=== PATIENT | male | born 1980 | race Caucasian/White ===

== ENCOUNTER 2024-03-13 12:08 | Inpatient (IN) | payer OTHER ==
[~2024-03-13] VITALS: Ht 175.3 cm; Wt 86.2 kg
[~2024-03-13 12:08] MED LIST: AMOX500 PO; CYCL10 PO; HYDACE5 PO; IBUP800 PO; NAPR500 PO; PERM5TC TOP; RXTRAM50 PO; TRAM50 PO
[2024-03-13 12:53] LABS: BASOPHILS ABSOLUTE AUTO 0.06 K/mm3 (0.00-0.23); BASOPHILS PERCENT AUTO 0 % (0-2); EOSINOPHILS PERCENT AUTO 0 % (0-6); Hematocrit 34.2 % (37.0-53.0); Hemoglobin 11.6 g/dL (13.5-17.5); IMMATURE GRAN ABSOLUTE AUTO 0.33 K/mm3 (0.00-0.10); IMMATURE GRAN PERCENT AUTO 1 % (0-1); LYMPHOCYTES ABSOLUTE AUTO 0.59 K/mm3 (0.84-5.20); LYMPHOCYTES PERCENT AUTO 2 % (21-46); MONOCYTES ABSOLUTE AUTO 2.14 K/mm3 (0.16-1.47); MONOCYTES PERCENT AUTO 8 % (4-13); Mean Corpuscular HGB 29.7 pg (26.0-34.0); Mean Corpuscular HGB Conc 33.9 g/dL (31.5-36.5); Mean Corpuscular Volume 88 fL (80-100); Mean Platelet Volume 10.2 fL (9.1-12.4); NEUTROPHILS ABSOLUTE AUTO 24.53 K/mm3 (1.96-9.15); NEUTROPHILS PERCENT AUTO 89 % (41-73); Platelet Count 212 K/mm3 (150-400); RDW Coefficient Variation 14.1 % (11.7-14.2); RDW Standard Deviation 44.9 fL (35.1-46.3); Red Blood Cell Count 3.91 M/mm3 (4.30-5.90); White Blood Cell Count 27.65 K/mm3 (4.00-11.30)
[2024-03-13 13:19] LABS: BAND PERCENT MAN 8 % (0-8); BASOPHILS PERCENT MAN 0 % (0-2); EOSINOPHILS PERCENT MAN 0 % (0-6); MONOCYTES ABSOLUTE MAN 1.38 K/mm3 (0.16-1.47); MONOCYTES PERCENT MAN 5 % (4-13); NEUTROPHILS ABSOLUTE MAN 26.26 K/mm3 (1.96-9.15); SEG NEUTROPHILS PERCENT MAN 87 % (41-73); TOTAL CELLS COUNTED 100
[2024-03-13 13:24] LABS: Albumin, Blood 3.3 g/dL (3.4-5.0); Albumin/Globulin Ratio 0.9 (0.8-1.8); Bilirubin, Total 0.9 mg/dL (0.1-1.0); Calcium, Blood 8.7 mg/dL (8.5-10.1); Globulin, Blood 3.6 g/dL (2.2-4.0); Potassium, Blood 3.8 mmol/L (3.5-5.5); Total Protein, Blood 6.9 g/dL (6.4-8.2)
[2024-03-13] MEDS ORDERED: NS 1,000 ML IV SCH ×3 (14:55→22:00)
[2024-03-13] MEDS ORDERED: Ondansetron HCl 2 MG / ML 2ML Vial IV ONE (14:55)
[2024-03-13] MEDS ORDERED: CeFAZolin Sodium 2,000 MG in NS 100 ML IV ONE (14:55)
[2024-03-13] MEDS ORDERED: Morphine Sulfate 4 MG/1 ML Injection IV ONE ×2 (14:55→19:00)
[2024-03-13 15:23] LABS: Hematocrit 30.1 % (37.0-53.0); Hemoglobin 10.4 g/dL (13.5-17.5); Mean Corpuscular HGB 29.9 pg (26.0-34.0); Mean Corpuscular HGB Conc 34.6 g/dL (31.5-36.5); Mean Corpuscular Volume 87 fL (80-100); Platelet Count 194 K/mm3 (150-400); RDW Coefficient Variation 13.8 % (11.7-14.2); RDW Standard Deviation 43.2 fL (35.1-46.3); Red Blood Cell Count 3.48 M/mm3 (4.30-5.90); White Blood Cell Count 24.87 K/mm3 (4.00-11.30)
[2024-03-13 15:45] LABS: BAND PERCENT MAN 21 % (0-8); BASOPHILS PERCENT MAN 0 % (0-2); EOSINOPHILS PERCENT MAN 0 % (0-6); LYMPHOCYTES % ATYPICAL MANUAL 1 % (0-0); LYMPHOCYTES ABSOLUTE MAN 0.99 K/mm3 (0.84-5.20); LYMPHOCYTES PERCENT MAN 3 % (21-46); METAMYELOCYTE ABSOLUTE MAN 0.49 K/mm3 (0.00-0.00); METAMYELOCYTE PERCENT MAN 2 % (0-0); MONOCYTES ABSOLUTE MAN 1.49 K/mm3 (0.16-1.47); MONOCYTES PERCENT MAN 6 % (4-13); MYELOCYTE ABSOLUTE MAN 0.24 K/mm3 (0.00-0.00); MYELOCYTE PERCENT MAN 1 % (0-0); NEUTROPHILS ABSOLUTE MAN 21.63 K/mm3 (1.96-9.15); SEG NEUTROPHILS PERCENT MAN 66 % (41-73); TOTAL CELLS COUNTED 100
[2024-03-13 15:53] LABS: International Normalized Ratio 1.13
[2024-03-13] MEDS ORDERED: OxyCODONE 5 mg/Acetamin 325 mg TABLET PO PRN (19:00)
[2024-03-13 19:08] VITALS: BP 136/123
[2024-03-13] MEDS ORDERED: Calcium Carbonate 500 MG Tab Chew PO PRN (20:50)
[2024-03-13 20:53] VITALS: BP 96/65
[2024-03-13] MEDS ORDERED: Lactobacil 2-S.Thermo-Bifido 1 1 Cap PO SCH (21:00)
[2024-03-13] MEDS ORDERED: Acetaminophen 500 MG Tab PO PRN (21:55)
[2024-03-13 22:44] VITALS: BP 93/72
[2024-03-14] MEDS ORDERED: CeFAZolin Sodium 2,000 MG in NS 100 ML IV SCH
--- NOTE | 2024-03-14 00:43 | NUR ---
2200- PT CONTINUES TO HAVE A FEVER. PROVIDER CALLED AND ORDERED TYLENOL. PROVIDER ALSO ORDERED PT TO HAVE CONTINOUS IV FLUIDS. PT PAIN IS WELL CONTROLLED. PT SOMNOLENT AND CONTINOUS SPO2 WAS ORDERED. PT REQUIRES 2 LPM NC OF O2 TO MAINTAIN SATS ABOVE 92 WHILE SLEEPING.
[2024-03-14 04:29] VITALS: BP 100/83
--- NOTE | 2024-03-14 04:59 | NUR ---
SUMMARY- PT PAIN MANAGED WELL. PT SBP HAS BEEN IN 90'S. PT MAP HAS REMAINED > 65. PT HAD NOTED FEVER AND PROVIDER CONTACTED AND TYLENOL ORDERED. PT HAS VOIDED. PT HAS SLEPT FOR ENTIRE SHIFT. PT IS EASILY AROUSED AND IS ON CONTINOUS SPO2. PT DID DESAT WHILE SLEEPING AND 1 LPM NC WAS PLACED ON PT. SPO2 HAS BEEN >92. PT RLE REMAINS VERY PAINFUL TO THE TOUCH. PHOTOS OF RLE ARE IN CHART. CALL LIGHT IN REACH.
[2024-03-14 05:35] LABS: Hematocrit 30.7 % (37.0-53.0); Hemoglobin 10.2 g/dL (13.5-17.5); Mean Corpuscular HGB 29.5 pg (26.0-34.0); Mean Corpuscular HGB Conc 33.2 g/dL (31.5-36.5); Mean Corpuscular Volume 89 fL (80-100); Mean Platelet Volume 10.3 fL (9.1-12.4); Platelet Count 178 K/mm3 (150-400); RDW Coefficient Variation 14.4 % (11.7-14.2); RDW Standard Deviation 46.6 fL (35.1-46.3); Red Blood Cell Count 3.46 M/mm3 (4.30-5.90); White Blood Cell Count 26.93 K/mm3 (4.00-11.30)
[2024-03-14 05:54] LABS: Albumin, Blood 2.5 g/dL (3.4-5.0); Albumin/Globulin Ratio 0.8 (0.8-1.8); Bilirubin, Total 0.6 mg/dL (0.1-1.0); Bun/Creatinine Ratio 10.3 (12.0-20.0); Calcium, Blood 7.5 mg/dL (8.5-10.1); Creatinine, Blood 1.16 mg/dL (0.60-1.20); Potassium, Blood 3.9 mmol/L (3.5-5.5); Total Protein, Blood 5.5 g/dL (6.4-8.2)
[2024-03-14 06:30] LABS: BAND PERCENT MAN 26 % (0-8); BASOPHILS PERCENT MAN 0 % (0-2); EOSINOPHILS PERCENT MAN 0 % (0-6); LYMPHOCYTES ABSOLUTE MAN 0.53 K/mm3 (0.84-5.20); LYMPHOCYTES PERCENT MAN 2 % (21-46); MONOCYTES ABSOLUTE MAN 1.88 K/mm3 (0.16-1.47); MONOCYTES PERCENT MAN 7 % (4-13); SEG NEUTROPHILS PERCENT MAN 65 % (41-73); TOTAL CELLS COUNTED 100
[2024-03-14 07:17] VITALS: BP 96/69
[2024-03-14] MEDS ORDERED: Enoxaparin 40 MG/0.4 ML SYR SC SCH (09:00)
[2024-03-14] MEDS ORDERED: NS 1,000 ML IV SCH (13:55)
--- NOTE | 2024-03-14 15:28 | NUR ---
SHIFT SUMMARY Patient reports adequte pain control with percocet. Vitals stable, afebrile. Continuing IV ABX for cellulitis. Awaiting blood culture results. Will continue plan of care.
[2024-03-14 15:34] VITALS: BP 107/68
[2024-03-14 19:34] VITALS: BP 110/62
[2024-03-14] MEDS ORDERED: NS 250 ML IV PRN (23:25)
--- NOTE | 2024-03-15 03:44 | NUR ---
SHIFT SUMMARY PT. IS A&O X4, ABLE TO MAKE HIS NEEDS KNOWN. PT.DENIES PAIN DURING THIS SHIFT. IV ABX INFUSED ORDERED. NO ACUTE EVENTS/DISTRESS NOTED/REPORTED DURING THIS SHIFT. BED AT THE LOWEST POSITION, CALL LIGHT IN REACH.WILL HANDOFF TO THE INCOMING SHIFT NURSE.
[2024-03-15 04:36] VITALS: BP 109/69
[2024-03-15 05:45] LABS: Hematocrit 29.7 % (37.0-53.0); Hemoglobin 10.1 g/dL (13.5-17.5); Mean Corpuscular HGB 29.7 pg (26.0-34.0); Mean Corpuscular Volume 87 fL (80-100); Mean Platelet Volume 10.4 fL (9.1-12.4); Platelet Count 190 K/mm3 (150-400); RDW Coefficient Variation 14.6 % (11.7-14.2); RDW Standard Deviation 46.8 fL (35.1-46.3); White Blood Cell Count 22.99 K/mm3 (4.00-11.30)
[2024-03-15 06:15] LABS: Bun/Creatinine Ratio 9.1 (12.0-20.0); Calcium, Blood 8.1 mg/dL (8.5-10.1); Creatinine, Blood 0.77 mg/dL (0.60-1.20); Potassium, Blood 3.9 mmol/L (3.5-5.5)
[2024-03-15 06:18] LABS: BAND PERCENT MAN 20 % (0-8); BASOPHILS PERCENT MAN 0 % (0-2); EOSINOPHILS PERCENT MAN 0 % (0-6); LYMPHOCYTES ABSOLUTE MAN 0.68 K/mm3 (0.84-5.20); LYMPHOCYTES PERCENT MAN 3 % (21-46); METAMYELOCYTE ABSOLUTE MAN 0.45 K/mm3 (0.00-0.00); METAMYELOCYTE PERCENT MAN 2 % (0-0); MONOCYTES ABSOLUTE MAN 1.14 K/mm3 (0.16-1.47); MONOCYTES PERCENT MAN 5 % (4-13); NEUTROPHILS ABSOLUTE MAN 20.69 K/mm3 (1.96-9.15); SEG NEUTROPHILS PERCENT MAN 70 % (41-73); TOTAL CELLS COUNTED 100
[2024-03-15 08:06] VITALS: BP 112/79
[2024-03-15] MEDS ORDERED: Lactated Ringer's 1,000 ML IV SCH (10:20)
[2024-03-15] MEDS ORDERED: HyDROXyzine HCl 25 MG Tab PO PRN (12:05)
[2024-03-15 15:13] VITALS: BP 116/83
--- NOTE | 2024-03-15 18:29 | NUR ---
SHIFT SUMMARY PT A&OX4, VSS, REMAINED IN BED T/O SHIFT, TOLERATING PO, VOIDING, AND PAIN MANAGED PER EMAR. LR INFUSING PER EMAR ORDER. NO ACUTE CHANGES. CALL LIGHT WITHIN REACH AND PT ABLE TO MAKE NEEDS KNOWN.
[2024-03-15 19:05] VITALS: BP 127/80
--- NOTE | 2024-03-16 04:31 | NUR ---
SHIFT SUMMARY HAP* WAS ALERT AND FULLY ORIENTED ON ASSESSMENT. PT STATES THAT THERE IS NO PAIN WHILE AT REST. PT MOSTLY INDEPENDENT NO CHANGES TO CONDITION. PT RESTING IN BED AT LOW POSITION
[2024-03-16 04:33] VITALS: BP 120/82
[2024-03-16 06:14] LABS: BASOPHILS ABSOLUTE AUTO 0.06 K/mm3 (0.00-0.23); BASOPHILS PERCENT AUTO 0 % (0-2); EOSINOPHILS ABSOLUTE AUTO 0.34 K/mm3 (0.00-0.68); EOSINOPHILS PERCENT AUTO 2 % (0-6); Hematocrit 28.2 % (37.0-53.0); Hemoglobin 9.5 g/dL (13.5-17.5); IMMATURE GRAN ABSOLUTE AUTO 0.11 K/mm3 (0.00-0.10); IMMATURE GRAN PERCENT AUTO 1 % (0-1); LYMPHOCYTES ABSOLUTE AUTO 0.81 K/mm3 (0.84-5.20); LYMPHOCYTES PERCENT AUTO 4 % (21-46); MONOCYTES ABSOLUTE AUTO 2.02 K/mm3 (0.16-1.47); MONOCYTES PERCENT AUTO 11 % (4-13); Mean Corpuscular HGB 29.2 pg (26.0-34.0); Mean Corpuscular HGB Conc 33.7 g/dL (31.5-36.5); Mean Corpuscular Volume 87 fL (80-100); Mean Platelet Volume 9.9 fL (9.1-12.4); NEUTROPHILS ABSOLUTE AUTO 15.51 K/mm3 (1.96-9.15); NEUTROPHILS PERCENT AUTO 82 % (41-73); Platelet Count 233 K/mm3 (150-400); RDW Coefficient Variation 14.5 % (11.7-14.2); RDW Standard Deviation 46.4 fL (35.1-46.3); Red Blood Cell Count 3.25 M/mm3 (4.30-5.90); White Blood Cell Count 18.85 K/mm3 (4.00-11.30)
[2024-03-16 06:36] LABS: Bun/Creatinine Ratio 9.1 (12.0-20.0); Calcium, Blood 7.6 mg/dL (8.5-10.1); Creatinine, Blood 0.77 mg/dL (0.60-1.20); Potassium, Blood 3.6 mmol/L (3.5-5.5)
[2024-03-16 07:44] VITALS: BP 145/88
[2024-03-16] MEDS ORDERED: CeFAZolin Sodium 2,000 MG VIAL ONE (09:50)
[2024-03-16] MEDS ORDERED: Lactated Ringer's 1,000 ML IV SCH (16:00)
[2024-03-16 16:30] VITALS: BP 177/108
[2024-03-16 19:19] VITALS: BP 134/101
[2024-03-16] MEDS ORDERED: Nicotine 21 MG PATCH TOP SCH (20:25)
--- NOTE | 2024-03-17 04:06 | NUR ---
SHIFT SUMMARY GINNY WAS ALERT AND FULLY ORIENTED ON ASSESSMENT. BLISTER ON PT AFFECTED R LEG NOTED TO BE GROWING IN SIZE. MEDICATED PRN FOR PAIN. NO CHANGES TO PT CONDITION. NICOTINE PATCH ADDED TO PT EMAR. PT RESTING.
[2024-03-17 04:20] VITALS: BP 127/79
[2024-03-17 06:08] LABS: BASOPHILS ABSOLUTE AUTO 0.05 K/mm3 (0.00-0.23); BASOPHILS PERCENT AUTO 0 % (0-2); EOSINOPHILS ABSOLUTE AUTO 0.37 K/mm3 (0.00-0.68); EOSINOPHILS PERCENT AUTO 3 % (0-6); Hematocrit 29.5 % (37.0-53.0); IMMATURE GRAN ABSOLUTE AUTO 0.27 K/mm3 (0.00-0.10); IMMATURE GRAN PERCENT AUTO 2 % (0-1); LYMPHOCYTES ABSOLUTE AUTO 1.01 K/mm3 (0.84-5.20); LYMPHOCYTES PERCENT AUTO 8 % (21-46); MONOCYTES ABSOLUTE AUTO 1.98 K/mm3 (0.16-1.47); MONOCYTES PERCENT AUTO 16 % (4-13); Mean Corpuscular HGB 29.1 pg (26.0-34.0); Mean Corpuscular HGB Conc 33.9 g/dL (31.5-36.5); Mean Corpuscular Volume 86 fL (80-100); Mean Platelet Volume 9.3 fL (9.1-12.4); NEUTROPHILS ABSOLUTE AUTO 8.51 K/mm3 (1.96-9.15); NEUTROPHILS PERCENT AUTO 70 % (41-73); Platelet Count 298 K/mm3 (150-400); RDW Coefficient Variation 14.6 % (11.7-14.2); RDW Standard Deviation 46.4 fL (35.1-46.3); Red Blood Cell Count 3.44 M/mm3 (4.30-5.90); White Blood Cell Count 12.19 K/mm3 (4.00-11.30)
[2024-03-17 06:38] LABS: Bun/Creatinine Ratio 6.6 (12.0-20.0); Calcium, Blood 8.1 mg/dL (8.5-10.1); Creatinine, Blood 0.76 mg/dL (0.60-1.20); Potassium, Blood 3.4 mmol/L (3.5-5.5)
[2024-03-17 07:54] VITALS: BP 124/75
[2024-03-17] MEDS ORDERED: Docusate Sodium/Senna 1 Tab PO PRN (12:05)
[2024-03-17] MEDS ORDERED: Vancomycin HCL 2,000 MG in NS 500 ML IV ONE (12:35)
[2024-03-17 15:14] VITALS: BP 135/95
--- NOTE | 2024-03-17 17:39 | NUR ---
SHIFT SUMMARY PT C/O MORE REDNESS TO R LEG THIS AM. AREA MARKED FOR MONITORING. DR. RICHARDSON SHOWN AND NIHARIKA ADDED TO EMAR. LR STARTED TODAY AT 200 ML/HR. NS STOPPED. NEW PHOTO TAKEN OF BLISTERS TO R ANKLE. AREA INTACT CURRENLTY. POOR APPETITE OVERALL. MEDICATED FOR PAIN TWICE THIS SHIFT. SLEEPING OFTEN. CONT PULSE OX IN PLACE. PT DENIES OTHER NEEDS AT THIS TIME. VS REVIEWED. CALL LIGHT IN REACH.
[2024-03-17 20:09] VITALS: BP 141/84
[2024-03-17] MEDS ORDERED: Vancomycin HCL 1,000 MG in NS 250 ML IV SCH (21:00)
[2024-03-18 04:52] VITALS: BP 128/84
--- NOTE | 2024-03-18 06:02 | NUR ---
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 PATIENT COMPLAINED OF PAIN AND PRN OXY WAS GIVEN TWICE DURING THE SHIFT. HERE FOR CELLULITIS TO THE RIGHT FOOT. REDNESS HAS EXTENDED BEYOND THE MARKED AREA FROM THE DAY SHIFT. BLISTER TO RIGHT ANKLE. RIGHT FOOT IS ELEVATED.
[2024-03-18 06:04] LABS: BASOPHILS ABSOLUTE AUTO 0.06 K/mm3 (0.00-0.23); BASOPHILS PERCENT AUTO 1 % (0-2); EOSINOPHILS ABSOLUTE AUTO 0.39 K/mm3 (0.00-0.68); EOSINOPHILS PERCENT AUTO 3 % (0-6); Hematocrit 30.1 % (37.0-53.0); Hemoglobin 10.1 g/dL (13.5-17.5); IMMATURE GRAN ABSOLUTE AUTO 0.57 K/mm3 (0.00-0.10); IMMATURE GRAN PERCENT AUTO 5 % (0-1); LYMPHOCYTES ABSOLUTE AUTO 1.04 K/mm3 (0.84-5.20); LYMPHOCYTES PERCENT AUTO 9 % (21-46); MONOCYTES ABSOLUTE AUTO 1.66 K/mm3 (0.16-1.47); MONOCYTES PERCENT AUTO 15 % (4-13); Mean Corpuscular HGB 28.7 pg (26.0-34.0); Mean Corpuscular HGB Conc 33.6 g/dL (31.5-36.5); Mean Corpuscular Volume 86 fL (80-100); Mean Platelet Volume 9.1 fL (9.1-12.4); NEUTROPHILS PERCENT AUTO 68 % (41-73); Platelet Count 360 K/mm3 (150-400); RDW Coefficient Variation 14.7 % (11.7-14.2); RDW Standard Deviation 46.3 fL (35.1-46.3); Red Blood Cell Count 3.52 M/mm3 (4.30-5.90); White Blood Cell Count 11.42 K/mm3 (4.00-11.30)
[2024-03-18 06:21] LABS: Bun/Creatinine Ratio 8.1 (12.0-20.0); Calcium, Blood 7.9 mg/dL (8.5-10.1); Creatinine, Blood 0.74 mg/dL (0.60-1.20); Potassium, Blood 3.8 mmol/L (3.5-5.5)
[2024-03-18 07:34] VITALS: BP 141/94
[2024-03-18 12:29] LABS: Vancomycin, Trough 10.5 ug/mL (5.0-10.0)
[2024-03-18] MEDS ORDERED: Vancomycin HCL 1,250 MG in NS 250 ML IV SCH (13:00)
[2024-03-18] MEDS ORDERED: Lactated Ringer's 1,000 ML IV SCH (13:50)
[2024-03-18 14:40] LABS: Percent Saturation 12.3 % (20.0-50.0)
[2024-03-18 14:45] LABS: IMMATURE RETIC FRACTION 11.4 % (2.3-16.0); RETIC HGB EQUIVALENT 27.3 pg (28.20-36.60); RETICULOCYTE ABSOLUTE 0.019 M/mm3 (0.0200-0.1100); RETICULOCYTE COUNT PERCENT 0.52 % (0.50-2.50)
[2024-03-18 15:54] VITALS: BP 125/80
--- NOTE | 2024-03-18 18:29 | NUR ---
SHIFT SUMMARY PT AOX4, BR AT THIS TIME DUE TO R LEG PAIN. USES THE URINAL INDEPENDENTLY. CALLS AND MAKES HIS NEEDS KNOWN. MEDICATED FOR PAIN PER THE EMAR. PT HAS SLEPT MOST OF THE SHIFT. EATING FOOD FROM HIS FAMILY, NOT EATING HOSPITAL FOOD. FAMILY AT THE BS TODAY AND UPDATED. CALL LIGHT WITHIN REACH, BED LOCKED AND IN THE LOWEST POSITION. WILL REPORT TO ONCOMING NURSE. REPOSTIIONED THROUGHOUT THE SHIFT.
[2024-03-18 19:37] VITALS: BP 132/71
--- NOTE | 2024-03-19 04:14 | NUR ---
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 USES THE URINAL AND BEDSIDE AND CALLS APPROPRIATELY. MARKED CELLULITIS TO R LEG IS DECREASING, BLISTER TO RIGHT ANKLE IS INCREASING IN SIDE. PATIENT COMPLAINED OF PAIN TO RIGHT LEG, PRN PAIN MEDS GIVEN DURING SHIFT.
[2024-03-19 04:58] VITALS: BP 124/74
[2024-03-19 06:08] LABS: Hematocrit 31.8 % (37.0-53.0); Hemoglobin 10.7 g/dL (13.5-17.5); Mean Corpuscular HGB 28.8 pg (26.0-34.0); Mean Corpuscular HGB Conc 33.6 g/dL (31.5-36.5); Mean Corpuscular Volume 86 fL (80-100); Mean Platelet Volume 8.9 fL (9.1-12.4); Platelet Count 442 K/mm3 (150-400); RDW Coefficient Variation 14.8 % (11.7-14.2); RDW Standard Deviation 46.3 fL (35.1-46.3); Red Blood Cell Count 3.72 M/mm3 (4.30-5.90); White Blood Cell Count 10.74 K/mm3 (4.00-11.30)
[2024-03-19 06:37] LABS: Bun/Creatinine Ratio 11.2 (12.0-20.0); Calcium, Blood 8.8 mg/dL (8.5-10.1); Creatinine, Blood 0.72 mg/dL (0.60-1.20)
[2024-03-19 06:42] LABS: BAND PERCENT MAN 6 % (0-8); BASOPHILS PERCENT MAN 0 % (0-2); EOSINOPHILS ABSOLUTE MAN 0.53 K/mm3 (0.00-0.68); EOSINOPHILS PERCENT MAN 5 % (0-6); LYMPHOCYTES ABSOLUTE MAN 0.96 K/mm3 (0.84-5.20); LYMPHOCYTES PERCENT MAN 9 % (21-46); MONOCYTES ABSOLUTE MAN 1.28 K/mm3 (0.16-1.47); MONOCYTES PERCENT MAN 12 % (4-13); NEUTROPHILS ABSOLUTE MAN 7.94 K/mm3 (1.96-9.15); SEG NEUTROPHILS PERCENT MAN 68 % (41-73); TOTAL CELLS COUNTED 100
[2024-03-19 07:27] VITALS: BP 130/81
[2024-03-19] MEDS ORDERED: Lactated Ringer's 1,000 ML IV SCH (09:00)
[2024-03-19] MEDS ORDERED: Arginine/Glutamine/Calcium Hmb 1 Packet PO SCH (09:00)
[2024-03-19 12:41] LABS: Vancomycin, Trough 15.7 ug/mL (5.0-10.0)
--- NOTE | 2024-03-19 15:02 | NUR ---
NOTE: PER PHARMACY, OKAY TO PIGGY BACK ANCEF AND VANCO OFF OF LACTATED RINGERS.
--- NOTE | 2024-03-19 18:01 | NUR ---
SHIFT SUMMARY PT AOX4, SBA FWW TO THE BR. HE CALLS AND MAKES HIS NEEDS KNOWN. MEDICATED FOR PAIN PER THE EMAR. SHOWER DONE THIS SHIFT AND BEDDING CHANGED. PT STATES SOME RELIEF TODAY BUT STILL IN A LOT OF PAIN. FAMILY UPDATED. CALL LIGHT WITHIN REACH, BED LOCKED AND IN THE LOWEST POSITION. REPOSITIONED THROUGHOUT THE SHIFT. WILL REPORT TO ONCOMING NURSE.
[2024-03-20 03:14] VITALS: BP 124/86
[2024-03-20 06:02] LABS: Hematocrit 31.4 % (37.0-53.0); Hemoglobin 10.6 g/dL (13.5-17.5); Mean Corpuscular HGB Conc 33.8 g/dL (31.5-36.5); Mean Corpuscular Volume 86 fL (80-100); Mean Platelet Volume 8.5 fL (9.1-12.4); Platelet Count 492 K/mm3 (150-400); RDW Coefficient Variation 14.6 % (11.7-14.2); Red Blood Cell Count 3.66 M/mm3 (4.30-5.90); White Blood Cell Count 10.17 K/mm3 (4.00-11.30)
[2024-03-20 06:30] LABS: BAND PERCENT MAN 4 % (0-8); BASOPHILS PERCENT MAN 1 % (0-2); EOSINOPHILS ABSOLUTE MAN 0.81 K/mm3 (0.00-0.68); EOSINOPHILS PERCENT MAN 8 % (0-6); LYMPHOCYTES ABSOLUTE MAN 0.81 K/mm3 (0.84-5.20); LYMPHOCYTES PERCENT MAN 8 % (21-46); MONOCYTES ABSOLUTE MAN 0.71 K/mm3 (0.16-1.47); MONOCYTES PERCENT MAN 7 % (4-13); MYELOCYTE PERCENT MAN 2 % (0-0); NEUTROPHILS ABSOLUTE MAN 7.52 K/mm3 (1.96-9.15); SEG NEUTROPHILS PERCENT MAN 70 % (41-73); TOTAL CELLS COUNTED 100
--- NOTE | 2024-03-20 06:34 | NUR ---
SHIFT SUMMARY NOC PT A/O X 4. PLEASANT AND COOPERATIVE WITH CARE. VSS. NO ACUTE CHANGES TO REPORT. RLE CELLULITIS RED AND WARM TO TOUCH AND THEY ARE RECEIVING IV ABX FOR TX AND PAIN BEING MANAGED PER EMAR. RLE HAS CLEAR DRAINAGE COMING FROM BLISTER ON R FOOT THAT POPPED THE PREVIOUS DAY. INFUSION OF LR @ 200 ML/HR STILL RUNNING. PT IS CURRENTLY RESTING WITH BED IN LOWEST POSITION, AND CALL LIGHT WITHIN REACH.
[2024-03-20 06:36] LABS: Bun/Creatinine Ratio 19.7 (12.0-20.0); Calcium, Blood 8.6 mg/dL (8.5-10.1); Creatinine, Blood 0.66 mg/dL (0.60-1.20); Potassium, Blood 3.9 mmol/L (3.5-5.5)
[2024-03-20 08:20] VITALS: BP 138/91
[2024-03-20 12:33] LABS: Vancomycin, Trough 14.9 ug/mL (5.0-10.0)
[2024-03-20 15:38] VITALS: BP 147/111
[2024-03-20 16:15] VITALS: BP 150/91
--- NOTE | 2024-03-20 19:18 | NUR ---
VSS, A-Ox4, denies SOB, states 7 out of 10 pain that was well managed with prn tylenol and percocett, ambulates with SB assist and walker, on RA. Lungs clear, heart regular, bowel sounds normative, RLE celliutes with small amounts of serosangious drainage, Surgery consult placed. Pt can make needs known, call blandon in hand, bed in lowest position.
[2024-03-20 19:31] VITALS: BP 153/99
[2024-03-21 03:59] VITALS: BP 133/86
--- NOTE | 2024-03-21 04:56 | NUR ---
SHIFT SUMMARY PATIENT HAD NO ACUTE CHANGES. AXOX 4 AND SBA W/FWW. DENIES CHEST PAIN, SOB, AND N/V. REPORTED RIGHT LOWER EXTREMETIE PAIN X TWO AND PERCOCET/TYLENOL GIVEN PER EMAR WITH GOOD EFFECT. VSS/AFEBRILE. ON ROOM AIR. SLEPT MOST OF THE SHIFT. CALL LIGHT IN REACH. BED IN LOWEST POSITION. WILL CONTINUE TO MONITOR UNTIL DAY SHIFT NURSE ASSUMES CARE.
[2024-03-21 07:28] VITALS: BP 122/83
[2024-03-21] MEDS ORDERED: Meropenem 1,000 MG in NS 100 ML IV SCH (08:00)
[2024-03-21 15:22] VITALS: BP 135/96
--- NOTE | 2024-03-21 19:39 | NUR ---
ASSUMED CARE AT 1200. PT PLEASANT TODAY. STATES DR DOMINGUEZ TOLD HIM NOT PLANNING SURGERY OR I&D. CONTINUING ANTIBIOTICS. HE DID GO OUTSIDE FOR FEW MINUTES TODAY. HIS COUNTANANCE IMPROVED AFTER RETURN. FAMILY AND FRIEND IN TO SEE TODAY. NO NEW CONCERNS NOTED. BED IN LOW POSITION, CALL LITE IN REACH, CALLS APPROP
[2024-03-21 19:42] VITALS: BP 125/99
--- NOTE | 2024-03-22 04:15 | NUR ---
SHIFT SUMMARY PATIENT HAD NO ACUTE CHANGES. AXOX 4 SBA W/FWW. PIV INTACT. IV ABX INFUSED. REPORTED RLE PAIN X ONE AND TYLENOL GIVEN PER EMAR. REPORTED DIDN'T WANT PERCOCET AT THIS TIME. DENIES CHEST PAIN, SOB, AND N/V. VSS/AFEBRILE. COOPERATIVE WITH CARE. CALL LIGHT IN REACH. BED IN LOWEST POSITION. WILL CONTINUE TO MONITOR UNTIL DAY SHIFT NURSE ASSUMES CARE.
[2024-03-22 05:06] VITALS: BP 125/95
[2024-03-22 07:38] VITALS: BP 125/94
[2024-03-22 15:00] VITALS: BP 124/91
--- NOTE | 2024-03-22 15:47 | NUR ---
ASSUMED CARE. PATIENT RESTING IN BED, A/O. NO COMPLAINTS OF PAIN AT THIS TIME. WOUND OPEN TO AIR. CALL LIGHT IN REACH
[2024-03-22 19:19] VITALS: BP 138/81
[2024-03-23 04:35] VITALS: BP 134/95
--- NOTE | 2024-03-23 05:22 | NUR ---
SHIFT SUMMARY: NO ACUTE EVENTS. DENIED PAIN. RLE WOUND NBA, NO DRAINAGE NOTED. SLEPT WELL. IS PLANNING ON GOING HOME TODAY WHETHER OR NOT HE IS DISCHARGED.
[2024-03-23 07:39] VITALS: BP 133/87
[2024-03-23] MEDS ORDERED: CEFD300 PO (11:43)
--- NOTE | 2024-03-23 12:10 | NUR ---
PATIENT D/C'D TO HOME WITH FAMILY. DC INSTRUCTIONS AND EDUCATION DISCUSSED WITH PATIENT AND COPY PROVIDED. RX MEDICATION FAXED TO [facility]. PATIENT DENIES ANY FURTHER QUESTIONS OR CONCERNS.
== END 2024-03-23 12:30 | disposition home or self-care (01) | DRG 872 ==
LOC: ER 12:08 → MEDS 12:09
PROVIDERS: Emergency Medicine; ADMIT Family Medicine
DX: A41.9 Sepsis, unspecified organism (principal); L03.115 Cellulitis of right lower limb; E87.1 Hypo-osmolality and hyponatremia; D64.9 Anemia, unspecified; R07.89 Other chest pain; E87.6 Hypokalemia
CPT/HCPCS: 36415; 71260; 80048; 80053; 80202; 82607; 82728; 82746; 83540; 83550; 83605; 84484; 85025; 85045; 85610; 85730; 87040; 93005; 93010; 93971; 94762; 96361; 96365-59; 96366; 96375-59; 96376; 97110; 97116; 97162; 97530; 99285-25; A9270; G0378; J0690; J1650; J2185; J2270; J2405; J3370; J7030; J7040; J7050; J7120; Q9967

== ENCOUNTER → 2024-03-27 | Outpatient (CLI) | payer OTHER ==
[~2024-03-27] MED LIST changes: +CEFD300 PO
[2024-03-27 18:53] LABS: BASOPHILS ABSOLUTE AUTO 0.09 K/mm3 (0.00-0.23); BASOPHILS PERCENT AUTO 1 % (0-2); EOSINOPHILS ABSOLUTE AUTO 0.29 K/mm3 (0.00-0.68); EOSINOPHILS PERCENT AUTO 4 % (0-6); Hematocrit 36.2 % (37.0-53.0); Hemoglobin 11.7 g/dL (13.5-17.5); IMMATURE GRAN ABSOLUTE AUTO 0.04 K/mm3 (0.00-0.10); IMMATURE GRAN PERCENT AUTO 1 % (0-1); LYMPHOCYTES ABSOLUTE AUTO 1.82 K/mm3 (0.84-5.20); LYMPHOCYTES PERCENT AUTO 24 % (21-46); MONOCYTES PERCENT AUTO 7 % (4-13); Mean Corpuscular HGB 28.5 pg (26.0-34.0); Mean Corpuscular HGB Conc 32.3 g/dL (31.5-36.5); Mean Corpuscular Volume 88 fL (80-100); Mean Platelet Volume 8.5 fL (9.1-12.4); NEUTROPHILS ABSOLUTE AUTO 4.84 K/mm3 (1.96-9.15); NEUTROPHILS PERCENT AUTO 64 % (41-73); Platelet Count 951 K/mm3 (150-400); RDW Coefficient Variation 14.7 % (11.7-14.2); RDW Standard Deviation 47.6 fL (35.1-46.3); Red Blood Cell Count 4.11 M/mm3 (4.30-5.90); White Blood Cell Count 7.58 K/mm3 (4.00-11.30)
[2024-03-27 19:20] LABS: C-REACTIVE PROTEIN, EXT RANGE 0.515 mg/dL (0.000-0.300)
[2024-03-27 19:26] LABS: Alanine Aminotransfer (ALT/SGP 33 U/L (12-78); Albumin, Blood 3.2 g/dL (3.4-5.0); Albumin/Globulin Ratio 0.7 (0.8-1.8); Alk Phos 157 U/L (50-136); Anion Gap 7 mmol/L (3-11); Aspartate Aminotrans (AST/SGOT 17 U/L (12-37); Bilirubin, Total 0.1 mg/dL (0.1-1.0); Blood Urea Nitrogen 17 mg/dL (8-24); Bun/Creatinine Ratio 23.7 (12.0-20.0); CHOL/HDL RATIO 4.7; CO2, Blood 29 mmol/L (21-32); Calcium, Blood 8.8 mg/dL (8.5-10.1); Chloride, Blood 105 mmol/L (98-108); Cholesterol 173 mg/dL (50-200); Creatinine, Blood 0.72 mg/dL (0.60-1.20); Globulin, Blood 4.8 g/dL (2.2-4.0); Glomerular Filtration Rate 116 (60-); Glucose, Blood 98 mg/dL (70-99); HDL Cholesterol 37 mg/dL (>39); LDL/HDL RATIO 2.8; Low Density Lipoprotein Chol 102 mg/dL (0-110); Potassium, Blood 4.2 mmol/L (3.5-5.5); Sodium, Blood 137 mmol/L (136-145); Triglycerides 168 mg/dL (30-160); Very Low Density Lipoprot Chol 33 mg/dL (6-32)
[2024-03-30 08:59] LABS: HIV 1,2 COMBO ANTIGEN/ANTIBODY Negative (Negative)
== END ==
LOC: LAB 17:37 → LAB SHORT 17:37
PROVIDERS: Family Medicine
DX: Z13.6 Encounter for screening for cardiovascular disorders (principal); Z00.00 Encounter for general adult medical examination without abnormal findings; L03.115 Cellulitis of right lower limb
CPT/HCPCS: 80053; 80061; 85025; 86140; 87389

== ENCOUNTER → 2025-07-10 | Outpatient (CLI) | payer OTHER ==
[2025-07-10 15:40] LABS: BASOPHILS ABSOLUTE AUTO 0.03 K/mm3 (0.00-0.23); BASOPHILS PERCENT AUTO 1 % (0-2); EOSINOPHILS ABSOLUTE AUTO 0.22 K/mm3 (0.00-0.68); EOSINOPHILS PERCENT AUTO 3 % (0-6); Hematocrit 38.2 % (37.0-53.0); Hemoglobin 12.9 g/dL (13.5-17.5); IMMATURE GRAN ABSOLUTE AUTO 0.02 K/mm3 (0.00-0.10); IMMATURE GRAN PERCENT AUTO 0 % (0-1); LYMPHOCYTES ABSOLUTE AUTO 1.17 K/mm3 (0.84-5.20); LYMPHOCYTES PERCENT AUTO 18 % (21-46); MONOCYTES ABSOLUTE AUTO 0.69 K/mm3 (0.16-1.47); MONOCYTES PERCENT AUTO 11 % (4-13); Mean Corpuscular HGB Conc 33.8 g/dL (31.5-36.5); Mean Corpuscular Volume 88 fL (80-100); NEUTROPHILS ABSOLUTE AUTO 4.31 K/mm3 (1.96-9.15); NEUTROPHILS PERCENT AUTO 67 % (41-73); NRBC ABSOLUTE 0.00 K/mm3 (0.00-0.02); NRBC Auto 0.0 /100 WBC (0.0-0.2); Platelet Count 270 K/mm3 (150-400); RDW Coefficient Variation 14.4 % (11.7-14.2); RDW Standard Deviation 46.5 fL (35.1-46.3)
[2025-07-10 15:49] LABS: Alanine Aminotransfer (ALT/SGP 28.0 U/L (12-78); Albumin, Blood 3.6 g/dL (3.4-5.0); Albumin/Globulin Ratio 0.9 (0.8-1.8); Anion Gap 14.0 mmol/L (3-11); Aspartate Aminotrans (AST/SGOT 20.0 U/L (12-37); Bilirubin, Total 0.2 mg/dL (0.1-1.0); Blood Urea Nitrogen 19.0 mg/dL (8-24); CO2, Blood 25.0 mmol/L (21-32); Calcium, Blood 9.2 mg/dL (8.5-10.1); Chloride, Blood 105.0 mmol/L (98-108); Creatinine, Blood 0.76 mg/dL (0.60-1.20); Globulin, Blood 3.8 g/dL (2.2-4.0); Glucose, Blood 99.0 mg/dL (70-99); Potassium, Blood 4.1 mmol/L (3.5-5.5); Sodium, Blood 140.0 mmol/L (136-145); Total Protein, Blood 7.4 g/dL (6.4-8.2)
== END | disposition home or self-care (01) ==
LOC: LAB 15:36 → LAB SHORT 15:36
PROVIDERS: Physician Assistant
DX: N48.89 Other specified disorders of penis (principal)
CPT/HCPCS: 80053; 85025